=== PATIENT | male | born 1940 | race Caucasian/White ===

== ENCOUNTER 2017-10-25 12:21 | Inpatient (IN) | payer MEDICARE, OTHER ==
[~2017-10-25] VITALS: Ht 167.6 cm; Wt 84.5 kg
--- NOTE | 2017-10-25 13:00 | NUR ---
PT BIB C/O HTN AND HEADACHE+DIZZINESS TODAY. REPORTS SBP IN 200S AT HOME. NO BLURRED VISION. NO N/V. NO OTHER NEURO DEFICITS. SKIN WARM, DRY. RESP EVEN UNLABORED. PERRLA. STRONG LIMBS. AMBULATORY STEADY GAIT. IN ER BED 05 ON MONITOR.
[2017-10-25] MEDS ORDERED: IV NS 0.9% 500 ML BAG IV ONE (14:00)
[2017-10-25 14:02] LABS: BASOPHILS # (AUTO) 0.1 /CMM (0.0-0.2); BASOPHILS % (AUTO) 1.8 % (0.0-2.0); EOSINOPHILS # (AUTO) 0.1 /CMM (0.0-0.7); EOSINOPHILS % (AUTO) 1.6 % (0.0-6.0); HEMATOCRIT 40 % (39-51); HEMOGLOBIN 13.4 g/dL (13.5-17.5); LYMPHOCYTES # (AUTO) 0.7 /CMM (0.8-4.8); LYMPHOCYTES % (AUTO) 9.7 % (20.0-44.0); MEAN CORPUSCULAR HEMOGLOBIN 29 PG (26.0-33.0); MEAN CORPUSCULAR HGB CONC 34 g/dl (31.0-36.0); MEAN CORPUSCULAR VOLUME 86 fL (80-96); MONOCYTES # (AUTO) 0.5 /CMM (0.1-1.30); MONOCYTES % (AUTO) 7.2 % (2.0-12.0); NEUTROPHILS # (AUTO) 6.2 /CMM (1.8-8.9); NEUTROPHILS % (AUTO) 79.7 % (43.0-81.0); PLATELET COUNT (AUTO) 197 /CMM (150-450); RDW COEFFICIENT OF VARIATION 12.5 (11.5-15.0); RED BLOOD CELL COUNT(AUTO) 4.61 MIL/uL (4.5-6.0); WHITE BLOOD COUNT (AUTO) 7.6 K/uL (4.3-11.0)
[2017-10-25 14:11] LABS: CALCIUM, SERUM 9.5 mg/dL (8.5-10.1); CARBON DIOXIDE 30 mmol/L (21-32); CHLORIDE 102 mmol/L (98-107); GLUCOSE 114 mg/dL (74-106); POTASSIUM 4.5 mmol/L (3.5-5.1); SODIUM SERUM 138 mmol/L (136-145); UREA NITROGEN, BLOOD 21 mg/dL (7-18)
[2017-10-25 14:15] LABS: INR 0.99 (0.87-1.13); PROTHROMBIN TIME 10.3 SECS (9.5-12.7)
[2017-10-25 14:21] LABS: TROPONIN I < 0.017 ng/mL (0.00-0.056)
[2017-10-25] MEDS ORDERED: MECLIZINE HCL 12.5 MG TABLET PO ONE ×2 (14:30→17:00)
[2017-10-25] MEDS ORDERED: IOHEXOL-350 100 ML VIAL IV ONE (14:55)
[2017-10-25] MEDS ORDERED: hydrALAZINE HCL IV 20 MG VIAL IV ONE (15:00)
--- NOTE | 2017-10-25 15:24 | NUR ---
PER , NO HYDRALAZINE AT THIS TIME
[2017-10-25] MEDS ORDERED: MECLIZINE HCL 25 MG TABLET ONE ×2 (15:34→15:35)
--- NOTE | 2017-10-25 15:37 | NUR ---
PT REFUSES MECLIZINE AT THIS TIME STATING "I'M NOT DIZZY"
[2017-10-25] MEDS ORDERED: OLME1TAB19 PO (15:47)
[2017-10-25] MEDS ORDERED: METF10002 PO (15:47)
[2017-10-25] MEDS ORDERED: BRIM5DRO3 EACHEYE (15:47)
[2017-10-25] MEDS ORDERED: TRAV5DRO EACHEYE (15:47)
[2017-10-25] MEDS ORDERED: ALFU10TA10 PO (15:47)
[2017-10-25] MEDS ORDERED: BRIN10DR EACHEYE (15:47)
[2017-10-25] MEDS ORDERED: PITA2TAB PO (15:47)
[2017-10-25] MEDS ORDERED: AMLO10TA2 PO (15:47)
--- NOTE | 2017-10-25 16:19 | NUR ---
RESTING QUIETLY, NAD NOTED. ALL NEEDS ATTENDED TO. DR CAUSEY AT BEDSIDE.
--- NOTE | 2017-10-25 16:52 | NUR ---
TELE ROOM 113-2
--- NOTE | 2017-10-25 16:59 | NUR ---
REPORT GIVEN TO JACKLYN BRISENO RN FOR ADMISSION. ROOM CHANGE TO 115-2.
--- NOTE | 2017-10-25 17:15 | NUR ---
PT TRANSPORTED TO [facility] IN STABLE CONDITION VIA ACLS PROTOCOL.
[2017-10-25 17:23] LABS: APPEARANCE,URINE CLEAR (CLEAR); BILIRUBIN,URINE NEGATIVE (NEGATIVE); BLOOD, URINE NEGATIVE Ery/uL (NEGATIVE); COLOR,URINE YELLOW (YELLOW); KETONES,URINE NEGATIVE (NEGATIVE); LEUKOCYTE ESTERASE ,URINE NEGATIVE (NEGATIVE); NITRITE, URINE NEGATIVE (NEGATIVE); PROTEIN,URINE NEGATIVE (NEGATIVE); UGLUCOSE NEGATIVE (NEGATIVE); UROBILINOGEN,URINE 0.2 EU/dL (0.2)
[2017-10-25 17:30] VITALS: BP 172/70
[2017-10-25] MEDS ORDERED: BLOOD SUGAR DIAGNOSTIC 1 EACH STRIP VI SCH (17:30)
[2017-10-25] MEDS ORDERED: DEXTROSE 50%-WATER 50 ML DISP.SYRIN IV PRN (17:30)
[2017-10-25] MEDS ORDERED: INSULIN REGULAR, HUMAN 100 UNIT/ML 3 ML VIAL SQ PRN (17:30)
[2017-10-25] MEDS ORDERED: *INSULIN REGULAR(HUMULIN R)HUM 100 UNIT/ML VIAL SQ PRN (17:30)
--- NOTE | 2017-10-25 17:30 | NUR ---
RN INITIAL NOTE PATIENT RECEIVED FROM ER.. CHARGE:JACKLYN TOOK REPORT FROM BRENDA. PATIENT IS AWAKE, ALERT AND ORIENTED. ABLE TO MAKE NEEDS KNOWN. NO S/S OF PAIN OR DISCOMFORT. DENIES PAIN AT THIS TIME. PATIENT IS AFIB ON TELE MONITOR. NO S/S OF RESPIRATORY DISTRESS OR SOB. SATING WELL ON ROOM AIR. RESPIRATIONS ARE EVEN AND UNLABORED. SKIN IS WARM AND DRY TO TOUCH. IV SITE FLUSHED, PATENT. SAFETY PRECAUTIONS IMPLEMENTED. BED IN LOCKED, LOW POSITION WITH TWO SIDE RAILS UP. CALL LIGHT AND BELONGINGS WITHIN EASY REACH. WILL CONTINUE TO MONITOR.
[2017-10-25] MEDS ORDERED: BLOOD SUGAR DIAGNOSTIC 1 EACH STRIP IN SCH (18:00)
[2017-10-25] MEDS: BLOOD SUGAR DIAGNOSTIC 1 EACH STRIP IN SCH ×2 (19:04→21:14)
[2017-10-25 19:34] LABS: CREATINE KINASE MB 3.5 ng/mL (0-3.6)
--- NOTE | 2017-10-25 19:50 | NUR ---
RN NOTES RECEIVED PT AWAKE ALERT ORIENTED X 4 VERBALLY RESPONSIVE. NO ACUTE RESP DISTRESS. DENIED ANY DIZZINESS BUE AND BLE ABLE TO LIFT NO UNUSUAL WEAKNESS , NO FACIAL DROOPING NOTED. AFEBRILE. PT IS ASKING ABOUT HIS MEDICINE AT HOME, PT STATED THAT HE WILL GO HOME TOMORROW. ASKED IF HE IS TAKING BOTH CHOLESTEROL ORDER PER PHARMACY PER PT HIS NOT TAKING IT EVERYDAY HE JUST WANT HIS BENICAR TO TAKE BECAUSE HIS SBP IS 170'S. EDUCATE PT REGARDING HIS DIAGNOSIS OF STROKE AND WHY THE BP MEDS WAS HELD PER MD. PT STARTED TO JERMAINE DOWN. KEPT PT CLEAN AND COMFORTABLE IN BED. PLAN OF CARE IMPLEMENT. IV SITE ON LAC G18 FLUSHED WELL INTACT AND PATENT. WILL CONTINUE TO MONITOR.
[2017-10-25 20:00] VITALS: BP 171/81
[2017-10-25 20:06] LABS: ALBUMIN 4.1 g/dL (3.4-5.0); BILIRUBIN,DIRECT 0.1 mg/dL (0.0-0.2); BILIRUBIN,TOTAL 0.4 mg/dL (0.2-1.0); TOTAL PROTEIN, SERUM 7.2 g/dL (6.4-8.2)
[2017-10-25] MEDS: IV NS 0.9% 1,000 ML IV PRN (21:15)
[2017-10-25] MEDS: LATANOPROST EYE DROP 0.005% 2.5 ML BOTTLE EACHEYE SCH (21:15)
--- NOTE | 2017-10-25 21:20 | NUR ---
RN NOTES PT ON BED VISITOR AT BEDSIDE, PT COMPLAINING OF HEADACHE. MD ON THE FLOOR INFORMED REGARDING THE PT SBP OF 170'S NNO PER MD, BUT OK TO GIVE TYLENOL FOR HEADACHE NTOED ADN ACKNOWLEDGE ORDER.
[2017-10-25] MEDS: SIMVASTATIN 20 MG TABLET PO SCH (21:24)
[2017-10-25] MEDS ORDERED: ACETAMINOPHEN 325 MG TABLET ONE (21:55)
[2017-10-25] MEDS: ACETAMINOPHEN 325 MG TABLET PO PRN (21:56)
[2017-10-26] VITALS (7 sets, daily range): BP systolic 124–172; BP diastolic 62–72
--- NOTE | 2017-10-26 07:05 | NUR ---
RN NOTES PT ASLEEP WELL ON BED. NO SIGNIFICANT CHANGE OF CONDITION THROUGHOUT THE SHIFT. AFEBRILE. VS STABLE AT THIS TIME. AMBULATE TO B/B KEPT PT CLEAN AND DRY. NEEDS ATTENDED. WILL ENDORSED CONTINUITY OF CARE TO AM NURSE.
--- NOTE | 2017-10-26 07:30 | NUR ---
INVESTMENT FUND MANAGER NOTES RECEIVED PT AWAKE ALERT ORIENTED X 4 VERBALLY RESPONSIVE. NO ACUTE RESP DISTRESS. DENIED ANY DIZZINESS BUE AND BLE ABLE TO LIFT NO UNUSUAL WEAKNESS , NO FACIAL DROOPING NOTED. AFEBRILE. PE KEPT PT CLEAN AND NO SOB NOTED , ON TELE MONITOR SR HR 59 WITH BIGEMINY PAC , LAC HL INTACT , NO S\S INFECTION NOTED ,ON IVF ORDERED,PLAN OF CARE DISUSED WITH PATIENT, CALL LIGHT WITHIN REACH , WILL CONT TO MONITOR CLOSELY
[2017-10-26] MEDS: BLOOD SUGAR DIAGNOSTIC 1 EACH STRIP IN SCH ×4 (08:00→21:31)
[2017-10-26] MEDS: BRIMONIDINE TARTRATE OPHT SOLN 5 ML BOTTLE EACHEYE SCH ×2 (08:07→16:38)
[2017-10-26] MEDS: AMLODIPINE BESYLATE 10 MG TABLET PO SCH (08:10)
--- NOTE | 2017-10-26 08:57 | NUR ---
PRIMARY SUBSTANCE ABUSE COUNSELOR NOTE C\O ABDOMINAL DISCOMFORT AND NAUSEA CALLED TO DR CAUSEY WITH ORDER TO GET MYLANTA AND ZOFRAN PRN , ALSO PATIENT REFUSED TO HAV INSULIN FOR COVERAGE
[2017-10-26] MEDS ORDERED: ONDANSETRON HCL/PF 4 MG/2 ML VIAL IV PRN (09:00)
[2017-10-26] MEDS ORDERED: MAG HYDROX/AL HYDROX/SIMETH 30 ML UDC PO PRN (09:00)
[2017-10-26] MEDS ORDERED: Alfuzosin Hcl 10 MG PO SCH (09:00)
[2017-10-26] MEDS ORDERED: Medication Not On Formulary EA (Pitavastatin Calcium (Livalo) 2 MG) PO SCH (09:00)
[2017-10-26] MEDS ORDERED: HYDROCODONE/APAP 5/325MG 1 EACH TABLET PO PRN (09:30)
[2017-10-26] MEDS ORDERED: ZOLPIDEM TARTRATE 5 MG TABLET PO PRN (09:30)
[2017-10-26] MEDS ORDERED: Z GUARD REMEDY 2 OZ OINT TP PRN (09:30)
--- NOTE | 2017-10-26 09:45 | NUR ---
ANALYSIS TESTER NOTE DR NELSON AT BEDSIDE PHONE NUMBER OF PATIENT CURRICULUM DEVELOPER GIVEN ,STATED THAT WILL CALL HIM Addendum: 10/26/17 at 1048 by LAYO BOWIE RN CALLED TO DR SHORT LEFT A MASSAGE, SPOKE WITH NITHIN , NOTIFIED THAT PATIENT REFUSING CTA BRAIN AND CAROTID STUDY WILL F\U
[2017-10-26] MEDS: ASPIRIN EC 81 MG TABLET.DR PO SCH (09:46)
[2017-10-26] MEDS: MECLIZINE HCL 12.5 MG TABLET PO SCH ×3 (09:46→21:27)
[2017-10-26] MEDS: IV NS 0.9% 1,000 ML IV PRN (09:48)
[2017-10-26] MEDS: hydrALAZINE HCL 50 MG TABLET PO SCH ×3 (11:47→16:41)
--- NOTE | 2017-10-26 11:55 | NUR ---
HIDE SPREADER NOTE SPOKE WITH JAMIE HIGGINBOTHAM JAVA TECHNICAL MANAGER NOTIFIED THAT PATIENT REFUSING CTA ANGIO BRAIN AND CAROTID STUDY ,STATED THAT WILL ORDER US CAROTID STUDY , Addendum: 10/26/17 at 1158 by LAYO BOWIE RN REFUSE INSULIN COVERAGE EXPLANTED OF IMPORTANCE OF INSULIN AT THIS TIME ,STILL REFUISING WILL CONT TO ENCOURAGE TO DO
--- NOTE | 2017-10-26 12:52 | NUR ---
CARTON MARKER MACHINE NOT HYDRALAZINE WAS GIVEN EARLIER Addendum: 10/26/17 at 1356 by LAYO BOWIE RN UPON ON CHAIR , NO SOB NOTED , ALL NEEDS ATTENDED , CONT ON IVF ORDERED, WILL CONT TO MONITOR CLOSELY
--- NOTE | 2017-10-26 14:58 | NUR ---
CHARGING PLUG PLACER NOTE PT AT BEDSIDE OPT EVAL DONE , NOT IN ACUTE DISTRESS Addendum: 10/26/17 at 1513 by LAYO BOWIE RN PER JAMIE BRUNER TO Marquita LAU ,ORDER CARRIED OUT
--- NOTE | 2017-10-26 16:00 | NUR ---
GENERAL MILLING SUPERINTENDENT NOTE CALLED TO DR SHORT NOTIFIED THAT PATIENT REFUSING CTA ANGIO RAIN AND CTA CAROTID, PATIENT REFUSED , STATED ITS OK NO NEW ORDER GIVEN AT THIS TIME
[2017-10-26] MEDS: METFORMIN 500 MG TABLET PO SCH (16:40)
--- NOTE | 2017-10-26 18:45 | NUR ---
HEAD IRRIGATOR NOTE ALL NEEDS ATTENDED, NOT IN ACUT DISTRESS, FAMILY AT BEDSIDE
--- NOTE | 2017-10-26 20:58 | NUR ---
patient primary dialect is Cambodian and speaks Vietnamese. He lives with his spouse in a condo with elevator.He is ambulatory and independent with adl's. Has no DME or homehealth reported. Family will provide ride home once discharge. Addendum: 10/26/17 at 2057 by ARMIDA LEVY RN Amended: Links added.
[2017-10-26] MEDS: SIMVASTATIN 20 MG TABLET PO SCH (21:27)
[2017-10-26] MEDS: LATANOPROST EYE DROP 0.005% 2.5 ML BOTTLE EACHEYE SCH (21:31)
[2017-10-27] VITALS: BP 134/55
[2017-10-27 04:00] VITALS: BP 159/86
[2017-10-27] MEDS: MECLIZINE HCL 12.5 MG TABLET PO SCH ×2 (04:34→12:58)
[2017-10-27] MEDS: ACETAMINOPHEN 325 MG TABLET PO PRN (04:34)
[2017-10-27 06:29] LABS: BASOPHILS % (AUTO) 0.3 % (0.0-2.0); EOSINOPHILS # (AUTO) 0.2 /CMM (0.0-0.7); EOSINOPHILS % (AUTO) 2.7 % (0.0-6.0); HEMATOCRIT 40 % (39-51); LYMPHOCYTES # (AUTO) 0.7 /CMM (0.8-4.8); LYMPHOCYTES % (AUTO) 10.2 % (20.0-44.0); MEAN CORPUSCULAR HEMOGLOBIN 29 PG (26.0-33.0); MEAN CORPUSCULAR HGB CONC 33 g/dl (31.0-36.0); MEAN CORPUSCULAR VOLUME 88 fL (80-96); MONOCYTES # (AUTO) 0.6 /CMM (0.1-1.30); MONOCYTES % (AUTO) 8.2 % (2.0-12.0); NEUTROPHILS # (AUTO) 5.6 /CMM (1.8-8.9); NEUTROPHILS % (AUTO) 78.6 % (43.0-81.0); PLATELET COUNT (AUTO) 188 /CMM (150-450); RDW COEFFICIENT OF VARIATION 13.4 (11.5-15.0); RED BLOOD CELL COUNT(AUTO) 4.51 MIL/uL (4.5-6.0); WHITE BLOOD COUNT (AUTO) 7.1 K/uL (4.3-11.0)
[2017-10-27 07:01] LABS: CHOLESTEROL 124 mg/dL (<200); HDL CHOLESTEROL 56 mg/dL (40-60); LDL 58 mg/dL (0-99); TRIGLYCERIDES 91 mg/dL (30-150)
--- NOTE | 2017-10-27 07:37 | NUR ---
CHRONIC DISEASE EPIDEMIOLOGIST CLOSING NOTES NO SIGNIFICANT CHANGES OVERNIGHT. ALL NEEDS ANTICIPATED AND MET. PATIENT A/OX4, ABLE TO MAKE NEEDS KNOWN. DENIES SOB. DENIES PAIN OR DISCOMFORT. RESPIRATIONS EVEN AND UNLABORED, ON ROOM AIR. PATIENT ABLE TO AMBULATE WITH NO COMPLICATIONS. ON TELE MONITOR SR. SKIN WARM AND DRY TO TOUCH. SIDE RAILS UP AND LOCKED. BED KEPT AT LOWEST POSITION. CALL LIGHT KEPT WITHIN EASY REACH. CONTINUITY OF CARE ENDORSED TO AM NURSE.
--- NOTE | 2017-10-27 07:40 | NUR ---
RN NOTES RECEIVED PT IN STABLE CONDITION RESTING IN BED. ON ROOM AIR NO SOB OR DISTRESS NOTED. A&0X3, SB ON THE TELE MONITOR WITH PACS HR 57. LFA 18G IV SITE INTACT NO IVF. NO COMPLAINTS OF PAIN. BED LOCKED AND IN LOWEST POSITION, CALL LIGHT WITHIN REACH, SIDE RAILS UPX3, WILL CONT TO SETH.
[2017-10-27 07:50] LABS: CALCIUM, SERUM 9.4 mg/dL (8.5-10.1); CARBON DIOXIDE 26 mmol/L (21-32); CHLORIDE 104 mmol/L (98-107); CREATININE 1.3 mg/dL (0.6-1.3); GLUCOSE 142 mg/dL (74-106); PHOSPHORUS 3.9 mg/dL (2.5-4.9); POTASSIUM 4.3 mmol/L (3.5-5.1); SODIUM SERUM 139 mmol/L (136-145); UREA NITROGEN, BLOOD 20 mg/dL (7-18)
[2017-10-27 08:00] VITALS: BP 153/61
--- NOTE | 2017-10-27 08:15 | NUR ---
RN NOTES PT REFUSED AM INSULIN, STATES HE ONLY TAKES METFORMIN AT HOME. PT EDUCATED.
[2017-10-27] MEDS: BLOOD SUGAR DIAGNOSTIC 1 EACH STRIP IN SCH ×2 (08:17→12:57)
[2017-10-27] MEDS: ASPIRIN EC 81 MG TABLET.DR PO SCH (08:17)
[2017-10-27] MEDS: AMLODIPINE BESYLATE 10 MG TABLET PO SCH (08:17)
[2017-10-27] MEDS: hydrALAZINE HCL 50 MG TABLET PO SCH (08:18)
[2017-10-27] MEDS: METFORMIN 500 MG TABLET PO SCH (08:18)
[2017-10-27] MEDS: BRIMONIDINE TARTRATE OPHT SOLN 5 ML BOTTLE EACHEYE SCH (08:18)
[2017-10-27] MEDS ORDERED: ASPI-1152 PO (11:30)
[2017-10-27] MEDS ORDERED: HYDR-4077 PO (11:30)
[2017-10-27 12:00] VITALS: BP 161/71
[2017-10-27] MEDS ORDERED: MECL12.582 PO (12:11)
[2017-10-27 12:58] VITALS: BP 161/71
[2017-10-27] MEDS ORDERED: hydrALAZINE HCL 50 MG TABLET PO SCH (13:00)
--- NOTE | 2017-10-27 15:21 | NUR ---
RN NOTES PT DISCHARGED IN STABLE CONDITION WITH DAUGHTER, STROKE EDUCATION PACKET PROVIDED, IV REMOVED, PAPERWORK PROVIDED.
[2017-10-28] MEDS ORDERED: OLMESARTAN PO SCH (09:00)
[2017-10-28] MEDS ORDERED: HYDROCHLOROTHIAZIDE PO SCH (09:00)
== END 2017-10-27 15:20 | disposition home or self-care (01) | DRG 149 ==
LOC: ER 12:22 → TELE1 17:23 → MEDSG1 10-27 13:33
PROVIDERS: ADMIT Internal Medicine; ATTEND Internal Medicine
DX: H81.49 Vertigo of central origin, unspecified ear (principal); E86.0 Dehydration; E11.9 Type 2 diabetes mellitus without complications; I16.9 Hypertensive crisis, unspecified; Z87.11 Personal history of peptic ulcer disease; E78.5 Hyperlipidemia, unspecified; Z90.49 Acquired absence of other specified parts of digestive tract; Z85.038 Personal history of other malignant neoplasm of large intestine; Z90.3 Acquired absence of stomach [part of]; Z87.891 Personal history of nicotine dependence; Z85.72 Personal history of non-Hodgkin lymphomas; Z79.84 Long term (current) use of oral hypoglycemic drugs; Z79.899 Other long term (current) drug therapy; Z95.810 Presence of automatic (implantable) cardiac defibrillator; H81.399 Other peripheral vertigo, unspecified ear; R00.1 Bradycardia, unspecified; I11.9 Hypertensive heart disease without heart failure
CPT/HCPCS: 36415; 70450-TC; 71010-TC; 80048-TC; 80061-TC; 80076-TC; 80305; 81000-TC; 82550-TC; 82553-TC; 82962-TC; 83735-TC; 83880; 84100-TC; 84443-TC; 84484-TC; 85025-TC; 85652-TC; 85730-TC; 92521; 92611-TC; 93307-TC; 93880-TC; A4606; J1815; J7030; J7040; J8597; Q9967; Z7610

== ENCOUNTER 2022-10-03 14:49 | Emergency (ER) | payer MEDICARE, OTHER ==
[~2022-10-03] VITALS: Ht 170.2 cm; Wt 74.8 kg
[~2022-10-03 14:49] MED LIST: ALFU10TA10 PO; AMLO-213 PO; ASPI-1420 PO; BRIM5DRO3 EACHEYE; BRIN10DR EACHEYE; HYDR-4077 PO; MECL-182 PO; METF-442 PO; PITA2TAB PO; TRAV5DRO11 EACHEYE
--- NOTE | 2022-10-03 14:49 | NUR ---
BIB RA 77 FROM HOME,C/O HEADACHE AND HIGH BP
--- NOTE | 2022-10-03 15:44 | NUR ---
DINORA ([facility]) [phone]
[2022-10-03 16:06] LABS: BASOPHILS % (AUTO) 0.5 % (0.0-2.0); EOSINOPHILS % (AUTO) 2.7 % (0.0-6.0); HEMATOCRIT 38 % (39-51); LYMPHOCYTES # (AUTO) 0.8 K/uL (0.8-4.8); LYMPHOCYTES % (AUTO) 17.2 % (20.0-44.0); MEAN CORPUSCULAR HGB CONC 32 g/dl (31.0-36.0); MEAN CORPUSCULAR VOLUME 82 fL (80-96); MONOCYTES # (AUTO) 0.5 K/uL (0.1-1.30); MONOCYTES % (AUTO) 9.5 % (2.0-12.0); NEUTROPHILS # (AUTO) 3.5 K/uL (1.8-8.9); NEUTROPHILS % (AUTO) 70.1 % (43.0-81.0); PLATELET COUNT (AUTO) 209 K/uL (150-450); RED BLOOD CELL COUNT(AUTO) 4.65 MIL/uL (4.5-6.0); WHITE BLOOD COUNT (AUTO) 4.9 K/uL (4.3-11.0)
[2022-10-03 16:31] LABS: CALCIUM, SERUM 8.8 mg/dL (8.5-10.1); CREATININE 1.2 mg/dL (0.6-1.3); POTASSIUM 4.2 mmol/L (3.5-5.1)
--- NOTE | 2022-10-03 17:20 | NUR ---
Patient discharged with daughter to home in stable condition. Written and verbal after care instructions given. Patient verbalizes understanding of instruction.
[2022-10-03 17:21] VITALS: BP 165/94
== END 2022-10-03 17:22 | disposition home or self-care (01) ==
LOC: ER 14:54
DX: I10 Essential (primary) hypertension (principal); R51.9 Headache, unspecified; E11.9 Type 2 diabetes mellitus without complications; Z79.899 Other long term (current) drug therapy
CPT/HCPCS: 36415; 70450-TC; 80048-TC; 85025-TC